=== PATIENT | male | born 1975 | race Hispanic/Latino ===

== ENCOUNTER → 2019-01-30 | Outpatient (CLI) | payer OTHER ==
[~2019-01-30] MED LIST: DIATRIZOATE MEGL/DIATRIZOA SOD 30 ML BTL PO ONE; IOPAMIDOL 370 MG/ML 200 ML INFUS..BTL INJ ONE; SODIUM CHLORIDE 0.9% 50ML 50 ML ONE
--- NOTE | 2019-01-30 17:41 | Diagnostic Imaging Report ---
CT of the abdomen and pelvis, with contrast, 01/30/2019. History: Ventral hernia. Comparison: None available. Technique: Multidetector CT scanning of the abdomen and pelvis was performed from the level of the lung bases to the inferior pubic rami after intravenous and oral administration of contrast. Coronal and sagittal multiplanar reformations were obtained. RADIATION DOSE: Total DLP: 400 mGy*cm Dose modulation, iterative reconstruction, and/or weight based adjustment of the mA/kV was utilized to reduce the radiation dose to as low as reasonably achievable. Discussion: LUNG BASES: No visualized abnormalities. ABDOMEN: There is diffuse low-density of the liver with focal fatty sparing adjacent to the gallbladder. The liver is enlarged measuring over 18 cm in length. There is no focal hepatic lesion. The gallbladder, biliary tree, spleen, pancreas, adrenal glands, and kidneys are normal. The hepatic vein, portal vein, and splenic vein are patent. The abdominal aorta is within normal limits for size. The stomach, small bowel, and large bowel are unremarkable. The appendix is visualized and is normal. There is no evidence of adenopathy or free fluid. A small fat-containing umbilical hernia is present. PELVIS: The bladder, prostate, and seminal vesicles are normal in appearance. There is no evidence of free fluid or adenopathy. BONES AND SOFT TISSUES: No acute abnormality. IMPRESSION: 1. Hepatomegaly with diffuse fatty infiltration of the liver, but no focal hepatic abnormality. 2. Small fat-containing umbilical hernia. Otherwise unremarkable CT of the abdomen and pelvis. Signed by: Armando Manning on 01/30/2019 5:38 PM
== END ==
LOC: CT 15:15
PROVIDERS: ATTEND Surgery
DX: K42.9 Umbilical hernia without obstruction or gangrene (principal); R16.0 Hepatomegaly, not elsewhere classified
CPT/HCPCS: 74177; Q9967